=== PATIENT | female | born 1990 | race Caucasian/White ===

== ENCOUNTER 2019-07-14 13:20 | Outpatient (CLI) | payer OTHER ==
[~2019-07-14] VITALS: Ht 154.9 cm; Wt 90.9 kg
[~2019-07-14 13:20] MED LIST: ASPI-817 PO; PREN-93 PO
[2019-07-14 15:32] VITALS: Ht 154.9 cm; Wt 90.9 kg
[2019-07-14 15:33] VITALS: BP 103/59; PULSE 81; RESP 18
== END 2019-07-14 16:35 | disposition home or self-care (01) ==
LOC: L-D 13:20 → OBT 13:20 → L-D 13:42 → OBT 16:35
PROVIDERS: ATTEND Obstetrics & Gynecology
DX: O13.3 Gestational [pregnancy-induced] hypertension without significant proteinuria, third trimester (principal); Z3A.31 31 weeks gestation of pregnancy
CPT/HCPCS: 76815; 76817; 76818; 80053; 81001; 84560; 85025; 85384; 85610; 85730; Z7500; G0463